=== PATIENT | male | born 1985 | race Caucasian/White ===

== ENCOUNTER 2019-03-30 22:28 | Emergency (ER) | payer OTHER ==
[~2019-03-30] VITALS: Ht 175.3 cm; Wt 83.0 kg
[2019-03-30 22:36] VITALS: BP 124/70
--- NOTE | 2019-03-30 22:42 | NUR ---
PT AMBULATED TO LOBBY WITH VSS.
--- NOTE | 2019-03-30 23:51 | NUR ---
PT AMBULATED TO BED 10
--- NOTE | 2019-03-31 | NUR ---
33/M PRESENTED TO ED C/O MOUTH PAIN XTODAY AT 0600. PT STATES WAKING UP TO SWOLLEN CHEEK. EDEMA NOTED TO L CHEEK. DENIES PAIN. DENIES CONSUMING ANY NEW FOODS. NO DRAINAGE NOTED. STATES HAD INFECTION TO L MOLAR AND PRESCRIBED AMOXICILLIN. PT TOOK AMOXICILLIN PRIOR TO ARRIVING TO ED TO TX SYMPTOMS OF TODAY'S VISIT. VSS. DENIES PAST MED HX, RX AND ALLERGIES. WILL CONTINUE TO MONITOR.
--- NOTE | 2019-03-31 01:30 | NUR ---
PT RESTING IN BED. NO SIGNS OF DISTRESS. NO PAIN REPORTED. AT BEDSIDE.
[2019-03-31 02:58] VITALS: BP 124/70
--- NOTE | 2019-03-31 02:58 | NUR ---
Patient discharged with v/s stable. Written and verbal after care instructions given and explained. Patient alert, oriented and verbalized understanding of instructions. Ambulatory with steady gait. All questions addressed prior to discharge. ID band removed. Patient advised to follow up with PMD. Rx of PENICILLIN, MOTRIN given. Patient educated on indication of medication including possible reaction and side effects. Opportunity to ask questions provided and answered.
== END 2019-03-31 02:58 | disposition home or self-care (01) ==
LOC: MED 22:28
DX: K04.7 Periapical abscess without sinus (principal)
CPT/HCPCS: 99283

== ENCOUNTER 2019-08-15 17:28 | Emergency (ER) | payer OTHER ==
[~2019-08-15] VITALS: Ht 175.3 cm; Wt 81.6 kg
[2019-08-15 17:59] VITALS: BP 128/76
--- NOTE | 2019-08-15 18:01 | NUR ---
TRIAGE COMPLETE. VSS. RETURNED TO LOBBY AWAITNG BED IN ED.
--- NOTE | 2019-08-15 20:24 | NUR ---
PT AMBULATED TO CHAIR A WITH PARTNER
--- NOTE | 2019-08-15 20:49 | NUR ---
34/M PRESENTS TO ED, C/O R EYE SCLERA REDNESS S/P GETTING POKED BY A FLOATABLE TOY SWORD TODAY. PT DENIES VISION CHANGES. PERRLA 3MM. PT AWAKE AND ALERT, SKIN NORMAL COLOR WARM AND DRY, RR EVEN AND UNLABORED.
[2019-08-15 20:52] VITALS: BP 128/76
--- NOTE | 2019-08-15 20:52 | NUR ---
Patient discharged with v/s stable. Written and verbal after care instructions given and explained. Patient alert, oriented and verbalized understanding of instructions. Ambulatory with steady gait. All questions addressed prior to discharge. ID band removed. Patient advised to follow up with PMD. Rx of CIPROFLOXACIN given. Patient educated on indication of medication including possible reaction and side effects. Opportunity to ask questions provided and answered. DR. FLORES D/C PT
== END 2019-08-15 20:52 | disposition home or self-care (01) ==
LOC: MED 17:28
DX: H11.31 Conjunctival hemorrhage, right eye (principal)
CPT/HCPCS: 99283